=== PATIENT | male | born 1970 | race Caucasian/White ===

== ENCOUNTER 2024-09-03 15:00 | Emergency (ER) | payer MEDICAID, SELFPAY ==
[2024-09-03] VITALS (8 sets, daily range): BP systolic 133–158; BP diastolic 80–117; PULSE 81–92; RESP 16–18; TEMP 36.6–36.7; O2SAT 94–99; BMI 18.8
--- NOTE | 2024-09-03 15:25 | XR_ITS ---
PROCEDURE INFORMATION: Exam: XR Left Forearm Exam date and time: 09/03/2024 3:35 PM Age: 54 years old Clinical indication: Other: Pain swelling, redness at wrist TECHNIQUE: Imaging protocol: Radiologic exam of the left forearm. Views: 2 views. COMPARISON: CR XR FOREARM LT 2V 09/03/2024 3:35 PM FINDINGS: Bones/joints: Normal. Soft tissues: Normal. IMPRESSION: No acute findings.
--- NOTE | 2024-09-03 15:25 | XR_ITS ---
PROCEDURE INFORMATION: Exam: XR Left Wrist Exam date and time: 09/03/2024 3:35 PM Age: 54 years old Clinical indication: Other: Minor injury, significant pain. Red/swollen TECHNIQUE: Imaging protocol: Radiologic exam of the left wrist. Views: 3 or more views. COMPARISON: CR XR FOREARM LT 2V 09/03/2024 3:35 PM FINDINGS: Bones/joints: Comminuted triquetral fracture. Soft tissues: Normal. IMPRESSION: Comminuted triquetral fracture.
--- NOTE | 2024-09-03 15:25 | XR_ITS ---
PROCEDURE INFORMATION: Exam: XR Left Hand Exam date and time: 09/03/2024 3:35 PM Age: 54 years old Clinical indication: Pain; Hand; Left; Additional info: Pain swelling, redness at wrist TECHNIQUE: Imaging protocol: Radiologic exam of the left hand. Views: 3 or more views. COMPARISON: CR XR HAND LT MIN 3V 09/03/2024 3:35 PM FINDINGS: Bones/joints: Comminuted fracture of the triquetrum. Soft tissues: Normal. IMPRESSION: Comminuted fracture of the triquetrum.
--- NOTE | 2024-09-03 15:37 | ED_ITS ---
Discharge Plan Disposition Patient Disposition: Home, Self-Care Chief Complaint: Extremity Injury, Upper Referrals Follow up/Referrals: Mat Ortiz DO [Staff Physician] - See instructions Provider,Raj, [Primary Care Provider] - See instructions Activity Restrictions/Add. Instructions Additional Instructions/Restrictions: Follow-up with Dr. Ortiz regarding this visit to the emergency department. Call your family doctor to establish care for this visit to the emergency department and schedule follow-up within 48 hours to ensure improvement. If you have any worsening of your condition or any other concerning signs or symptoms, return to the emergency department or your primary care doctor for further evaluation. Take Tylenol 1000 mg every 6 hours (4 times daily) and ibuprofen 400 mg every 6 hours (4 times daily) as needed with food and water to prevent GI upset and kidney damage. Clinical Impressions Clinical Impression: Fracture of triquetrum Print Language Print Language: Bengali Discharge ED Provider: Corby Gorman General Adult HPI General Chief complaint: Extremity Injury, Upper Stated complaint: LT wrist and arm pain Time Seen by Provider: 09/03/24 15:00 Mode of Arrival: Ambulatory Source of Information: Patient Limitations: No Limitations Description of Symptoms (Recalled from ER Triage Doc. by RN): Reports left wrist swelling and redness since Wednesday. History of Present Illness HPI narrative: Please note that above description of symptoms, in this electronic medical record under categorization of recalled from ER triage doctor by RN are reflective of an initial nursing assessment, however, is not reflective of my full history and physical exam that was personally taken and clarified. Consequentially, this preceding description of symptoms, which may include the patient's categorized chief complaint in the EMR, do not reflect my personal clinical impression, and the ultimate description of history of present illness and patient stated complaints should be deferred to this section of the note. Unless stated otherwise or congruent with this section of the note, additional signs, symptoms, or incongruence should be interpreted as inaccurate with my clinical impression. Related Data Allergies Allergy/AdvReac Type Severity Reaction Status Date / Time ibuprofen Allergy Abdominal Verified 09/03/24 15:11 Pain PFSH [facility] Disclaimer: The information contained in this section may have been updated after the patient was seen, as this information can be updated by other users. Social History Smoking Status: Current every day smoker alcohol intake: never current occupational status: employed Travel in the last 8 weeks: None ROS Obtained: Yes All systems reviewed & no additional complaints except as documented Physical Exam General General appearance: alert Head Head exam: atraumatic and normocephalic Eye Eye exam: Present normal appearance, PERRL and EOMI Neck Neck exam: Present normal inspection, full ROM and trachea midline Respiratory Respiratory exam: Absent respiratory distress, wheezes, stridor, accessory muscle use or prolonged expiratory phase Cardiovascular Cardiovascular exam: Present other (Pulses equal symmetric in upper and lower extremities) Abdominal Exam Abdominal exam: Present soft; Absent distention, tenderness or pulsatile mass Extremities Exam Extremities exam: Present joint swelling (Read, swollen left wrist. Unable to supinate. Tenderness about wrist primarily dorsally. Neurovascularly intact) Neurological Exam Neurological exam: Present alert, oriented X3 and CN II-XII intact; Absent motor sensory deficit Skin Skin exam: Present warm and dry; Absent diaphoresis or erythema Medical Decision Making Medical Records Medical records reviewed: Yes I reviewed the patient's medical records. Screening: Per USPSTF and CDC recommendations, given the prevalence of disease in our region, it is our hospital?s policy to screen for HIV and viral Hepatitis for all patients aged 18 and over and those with ongoing risk factors. Jesus Inquiry Pt receiving controlled substance: No Jesus was queried for this patient: No Vital Signs: 09/03/24 15:02 09/03/24 15:30 09/03/24 16:00 Temperature 97.8 F Temperature Source Oral Pulse Rate 89 81 Pulse Rate [Radial] 91 H Respiratory Rate 18 Blood Pressure 146/84 H 133/84 Blood Pressure [Right Arm] 145/117 H Blood Pressure Mean [Right Arm] 126 Blood Pressure Source [Right Arm] Automatic Cuff Blood Pressure Position [Right Arm] Sitting 02 Sat by Pulse Oximetry 99 98 97 Oxygen Delivery Method Room Air Room Air Room Air 09/03/24 16:30 09/03/24 17:00 09/03/24 17:30 Temperature Temperature Source Pulse Rate 92 H 84 83 Pulse Rate [Radial] Respiratory Rate Blood Pressure 153/80 H 158/86 H 134/80 Blood Pressure [Right Arm] Blood Pressure Mean [Right Arm] Blood Pressure Source [Right Arm] Blood Pressure Position [Right Arm] 02 Sat by Pulse Oximetry 94 L 95 96 Oxygen Delivery Method Room Air Room Air Room Air 09/03/24 18:00 Temperature Temperature Source Pulse Rate 85 Pulse Rate [Radial] Respiratory Rate Blood Pressure 150/86 H Blood Pressure [Right Arm] Blood Pressure Mean [Right Arm] Blood Pressure Source [Right Arm] Blood Pressure Position [Right Arm] 02 Sat by Pulse Oximetry 95 Oxygen Delivery Method Room Air Lab Data Lab Results 09/03/24 15:30: WBC 11.1 H, RBC 4.57 L, Hgb 14.0 L, Hct 41.7 L, MCV 91.2, MCH 30.6, MCHC 33.6, RDW 14.1, Plt Count 362, MPV 9.8, Neut % (Auto) 63.4, Lymph % (Auto) 23.4, Boyd % (Auto) 8.7, Eos % (Auto) 3.8, Baso % (Auto) 0.5, Neut # (Auto) 7.1, Lymph # (Auto) 2.6, Boyd # (Auto) 1.0, Eos # (Auto) 0.4, Baso # (Auto) 0.1, ESR 15, Sodium 140, Potassium 4.4, Chloride 103, Carbon Dioxide 32 H , Anion Gap 9.4, BUN 11, Creatinine 0.80, Estimated Creat Clear 90, Estimated GFR 100, Est GFR ( Amer) 121, Glucose 98, Lactate 1.5, Calcium 9.2, Total Bilirubin 0.4, AST 26, ALT 27, Alkaline Phosphatase 86, C-Reactive Protein 8.6 H , Total Protein 7.4, Albumin 4.3, Globulin 3.1, Albumin/Globulin Ratio 1.4 09/03/24 15:30 09/03/24 15:30 Orders (Tests/Meds): ED MEDICATIONS Discontinued Medications Generic Name Dose Route Start Last Admin Trade Name Isabel PRN Reason Stop Dose Admin Dexamethasone Sodium Phosphate 10 mg 09/03/24 15:19 09/03/24 16:22 Dexamethasone 4mg/Ml 1ml Vial IV 09/03/24 15:20 10 mg ONCE ONE Administration ORDERS Category Date Time Status Forearm XR left 2 views [XR forearm LT 2V] Stat Exams 09/03/24 15:25 Completed POCUS Point of Care (ER Only) Stat Exams 09/03/24 15:26 Completed Wrist XR left minimum 3 views [XR wrist LT min 3V] Stat Exams 09/03/24 15:25 Completed XR hand LT min 3V Stat Exams 09/03/24 15:25 Completed CBC w/Auto Diff [Complete Blood Count Auto Diff] Stat Lab 09/03/24 15:30 Completed CMP [Comprehensive Metabolic Panel] Stat Lab 09/03/24 15:30 Completed CRP [C-Reactive Protein] Stat Lab 09/03/24 15:30 Completed ESR [Erythrocyte Sedimentation Rate] Stat Lab 09/03/24 15:30 Completed Lactic Acid Stat Lab 09/03/24 15:30 Completed Uric Acid Stat Lab 09/03/24 15:30 Received Blood Culture Stat Micro 09/03/24 15:30 Received Medical Decision Narrative: This is a 54-year-old male no relevant medical history presenting with left wrist pain. He states that 7 days prior to this visit, he was moving [employer] floor paneling and felt an immediate pain in his left wrist. Since that time, it has been progressively swollen and tender. No other trauma that he remembers to the wrist. No fevers or chills, nausea or vomiting, but states that the hand and wrist feel warm. Has been taking Tylenol with mild relief. Patient states he has no history of bacterial bloodstream infections, trauma to the area, injections to the wrist, surgeries on the rest, IV drug abuse, or any other relevant hematologic/infectious history. History was obtained via conversation with patient and significant other. On arrival, patient hemodynamically stable, alert, oriented x4, appropriate, GCS 15, moving all extremities spontaneously, pupils equal and reactive to light. Full physical exam performed and significant for well-appearing male no acute distress. His left wrist is red, swollen, tender ventrally and dorsally, but dorsally more so. Neurovascularly intact. He does have significant range of motion difficulties of the left wrist and that he is unable to supinate the wrist as well as flex or extend wrist without significant amounts of pain. Compartments are soft. Differential includes fracture, sprain, strain, intra-articular hematoma, septic joint, among others. Patient placed on continuous cardiac monitoring and continuous pulse ox with initial blood pressure 145/117, heart rate 91, saturation 99% on room air. Patient was given IV dexamethasone, since he has GI upset with NSAIDs and took Tylenol just before arrival for symptomatic management and correction of underlying abnormalities. Bedside [id number] ultrasound was performed. Patient does have a joint effusion at radial ulnar joint as well as radiocarpal and ulnocarpal joints. No evidence of deep space abscess. Surrounding cellulitis vs edema is present. Workup independently interpreted and significant for mild leukocytosis, mildly elevated CRP, but normal ESR.. On independent interpretation of imaging, triquetral fracture, small joint effusion. See radiology read for full review of final results. On reevaluation, patient resting comfortably ready to go. Given patient presentation, workup, history, this most likely represents triquetral fracture. Star criteria negative, less likely to be septic joint, but still recommend he follow-up with orthopedics because patient at baseline without signs or symptoms of clinical decompensation, deemed appropriate for discharge. Results were relayed to patient who voiced understanding and were agreeable to outpatient management and follow up. I discussed my clinical impression with patient and answered all questions. At this time, the evidence for any other entities in the differential is insufficient to warrant any further testing or ED observation. This was explained as well. Advisory was given that persistent or worsening symptoms require further evaluation. I confirmed the understanding of this discussion. 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 Electronic de icer installer of the spoken language may permit errors. Although I have reviewed the note, some errors may still exist. Procedures Limited Ultrasound Indication:: Limited soft tissue ultrasound Indication: Left wrist swelling and redness/pain Identified structures: Location: Left wrist ventrally and dorsally Findings: Effusions at ulnocarpal, radiocarpal, radial ulnar joints. Mixed echogenicity fluid Impression: Effusions at ulnocarpal, radiocarpal, radial ulnar joints. Mixed echogenicity fluid Images were saved to permanent archive The study was technically adequate Soft Tissue CPT Codes: CPT Neck: 70816-04 CPT Upper extremity: 38798-76 CPT Axilla: 38172-04 CPT Chest wall: 97360-34 CPT Breast: 85318-08-SL/LT (complete), 12634-24-KK/LT (limited), CPT Upper Back: 08371-28 CPT Lower Back: 13617-47 CPT Abdominal Wall: 37916-37 CPT Pelvic Wall: 95614-10 CPT Lower Extremity: 69213-11 CPT Other Soft Tissue: 09560-90 This study was performed by me, and I personally interpreted all images/videos. Based on my clinical judgement, these images were adequate and did not necessitate further imaging. Critical Care Critical Care Time Critical Care Time: No
--- NOTE | 2024-09-03 15:40 | PC.NURSE ---
XR AT BEDSIDE
--- NOTE | 2024-09-03 15:44 | PC.NURSE ---
ROUNDED ON THE PT. THE PT VOICES THAT HE DOES NOT NEED ANYTHING AT THIS TIME. CALL LIGHT IS WITHIN REACH OF THE PT. FAMILY MEMBER IS PRESENT AT THE BEDSIDE.
[2024-09-03 16:02] LABS: Basophils # 0.1 K/mm3 (0-0.2); Basophils % 0.5 % (0.1-2.0); Eosinophils # 0.4 K/mm3 (0.0-0.4); Eosinophils % 3.8 % (0.1-12.0); Hematocrit 41.7 % (42.0-52.0); Lymphocytes # 2.6 K/mm3 (0.7-4.5); Lymphocytes % 23.4 % (10-50); Mean Corpuscular HGB Conc 33.6 g/dL (31.8-35.4); Mean Corpuscular Hemoglobin 30.6 pg (27.0-31.2); Mean Corpuscular Volume 91.2 fl (80-94); Mean Platelet Volume 9.8 fl (7.4-10.4); Monocytes % 8.7 % (1.7-9.3); Neutrophils # 7.1 K/mm3 (1.8-7.8); Neutrophils % 63.4 % (37.0-80.0); Platelet Count 362 K/mm3 (142-424); Red Blood Count 4.57 M/mm3 (4.60-6.20); Red Cell Distribution Width 14.1 % (11.5-17.5); White Blood Count 11.1 K/mm3 (4.8-10.8)
[2024-09-03 16:12] LABS: Albumin Level 4.3 g/dl (3.5-5.0); Chloride 103 mmol/L (98-107); Sodium 140 mmol/L (136-145)
[2024-09-03 16:13] LABS: Potassium 4.4 mmoL/L (3.5-5.1)
[2024-09-03 16:15] LABS: Alanine Aminotransferase 27 U/L (12-78); Anion Gap 9.4 mEq/L (5-15); Aspartate Amino Transferase 26 U/L (17-59); Blood Urea Nitrogen 11 mg/dl (9-20); Carbon Dioxide 32 mmol/L (22.0-30.0); Creatinine Clearance Estimated 90 mL/min (50-200); Estimated Glomerular Filt Rate 100 ml/min (>60); GFR (African American) 121 ML/MIN (>60)
[2024-09-03 16:16] LABS: Albumin/Globulin Ratio 1.4 (1.1-1.8); Alkaline Phosphatase 86 U/L (38-126); Bilirubin,Total 0.4 mg/dl (0.2-1.3); Calcium 9.2 mg/dl (8.4-10.2); Globulin 3.1 g/dL (1.3-3.2); Glucose 98 mg/dl (74-100); Total Protein,Serum 7.4 g/dl (6.3-8.2)
[2024-09-03 16:17] LABS: Lactic Acid 1.5 mmol/L (0.7-2.1)
[2024-09-03 16:22] LABS: C-Reactive Protein 8.6 mg/L (0-4)
[2024-09-03] MEDS: DEXAMETHASONE 4MG/ML 1ML VIAL 10 MG IV (16:22)
--- NOTE | 2024-09-03 17:01 | PC.NURSE ---
DR JEROME AT BEDSIDE TO UPDATE PT AND FAMILY
[2024-09-03 18:04] LABS: Erythrocyte Sedimentation Rate 15 mm/hr (0-20)
--- NOTE | 2024-09-03 18:15 | PC.NURSE ---
DR JEROME AT BEDSIDE TO UPDATE PT AND FAMILY
[2024-09-04 09:07] LABS: Uric Acid 4.6 mg/dl (3.5-8.5)
== END 2024-09-03 18:21 | disposition home or self-care (01) ==
PROVIDERS: Emergency Provider Emergency Medicine
DX: S62.112A Displaced fracture of triquetrum [cuneiform] bone, left wrist, initial encounter for closed fracture (principal); M25.532 Pain in left wrist; M79.602 Pain in left arm; X50.0XXA Overexertion from strenuous movement or load, initial encounter; Y93.89 Activity, other specified; Y92.9 Unspecified place or not applicable
CPT/HCPCS: 73090; 73110; 73130; 80053; 83605; 84550; 85025; 85651; 86140; 87040; 96374; 99284; J1100